=== PATIENT | female | born 1955 | race Caucasian/White ===

== ENCOUNTER 2019-03-30 11:37 | Outpatient (CLI) | payer MEDICARE, OTHER, SELFPAY ==
--- NOTE | 2019-03-30 11:47 | CT_ITS ---
WS: [id number] CT ANGIOGRAPHY ABDOMEN AORTA HISTORY: RENAL ARTERY ANEURYSM TECHNIQUE: CT angiogram is performed during IV injection. Reformation and MIP images reviewed. All CT scans at [facility] use at least one of these dose optimization techniques: automated exp osure control; mA and/or kV adjustment per patient size (includes targeted exams where dose is matche d to clinical indication); or iterative reconstruction. CONTRAST: Omnipaque 350; 95 mL IV. DLP: 491.16 mGycm COMPARISON: 10/26/2017 Chronic emphysematous changes at the lung bases. Heart size is normal. No significant hiatal hernia. Multiple cysts are scattered throughout the liver. The largest is lobulated in the LEFT lobe with a m aximum diameter of 2.2 cm. No solid mass. Benign calcification in the RIGHT lobe of the liver. Gallbl adder is normal. Spleen is normal size. Pancreas and common bile duct are normal. Normal RIGHT adrena l gland. Lobulated LEFT adrenal gland is similar to the prior study from 2018. Hyperplasia versus 1.4 cm adenoma. No free fluid or adenopathy. There are a few scattered diverticula in the visualized LEF T colon. Abdominal aorta: Good contrast opacification of the abdominal aorta. There is no abdominal aortic ane urysm. Celiac axis and SMA are widely patent. Inferior mesenteric artery is patent. LEFT renal artery: Origin of the LEFT renal artery is normal. There is a small amount of calcificatio n in the wall which is not causing an obstruction. Partially calcified 1.2 cm renal artery aneurysm j ust proximal to the LEFT renal pelvis. There is calcification in the wall and partial thrombus. The l umen of the aneurysm is well opacified. No increase in size of the aneurysm since the prior study. LE FT kidney is normally enhancing. RIGHT renal artery: Origin of the RIGHT renal artery is normal. No aneurysm. Normal enhancement of th e kidney. Single renal artery is present. Increase in lumbar lordosis. No osteoblastic or osteolytic bone disease. CT/CT angio abdomen [id number] IMPRESSION: 1. 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 Peripheral calcification a smal l amount of thrombus with partial enhancement of the aneurysm. No increase in s ize. 2. Single bilateral renal arteries with a small amount of calcified plaque pro ximally. 3. Emphysema. 4. Hepatic cysts, stable.
[2019-03-30 12:31] LABS: Blood Urea Nitrogen 10 mg/dL (8-23)
[2019-03-30] MEDS: iohexol 350 mg/mL 100 mL Btl IV (12:41)
== END 2019-03-30 11:38 | disposition home or self-care (01) ==
LOC: RADWPI 11:44
PROVIDERS: Family Provider Nurse Practitioner Family; PCP Nurse Practitioner Family; Visit Provider Internal Medicine Cardiovascular Disease
DX: I72.2 Aneurysm of renal artery (principal); J43.9 Emphysema, unspecified; K76.0 Fatty (change of) liver, not elsewhere classified; K76.89 Other specified diseases of liver
CPT/HCPCS: 74175; 82565; 84520; Q9967

== ENCOUNTER 2020-03-01 12:37 | Outpatient (CLI) | payer MEDICARE, OTHER, SELFPAY ==
--- NOTE | 2020-03-01 13:11 | MM_ITS ---
WS: [id number] DIAGNOSTIC BILATERAL DIGITAL MAMMOGRAM WITH CAD RIGHT breast ultrasound, limited HISTORY: RT BREAST CYSTIC LESION 7-8 O'CLOCK COMPARISON: 11/16/2018 and 10/26/2017 TECHNIQUE: Bilateral craniocaudad, mediolateral oblique, and mediolateral views are submitted. Spot c ompression RIGHT CC and MLO. Computer aided detection utilized. Breast composition: The breasts are heterogeneously dense, which may obscure small masses. Triangular markers are placed near the upper outer quadrant of the RIGHT breast. There is no underlying mass or distortion. No calcifications. LEFT breast is negative. RIGHT breast ultrasound, limited. Ultrasound performed in the area of interest. At 12:00 is a minimally prominent duct and mild soft ti ssue thickening. No suspicious finding. At 8:00 mildly prominent duct with no mass. No cystic or syeda d masses. MM/[place] [id number] IMPRESSION: BI-RADS: 2-Benign FOLLOW UP: 1 Year Follow-up
== END 2020-03-01 12:38 | disposition home or self-care (01) ==
LOC: RADSHAW 12:43
PROVIDERS: PCP Nurse Practitioner Family; Visit Provider Nurse Practitioner Family
DX: N63.14 Unspecified lump in the right breast, lower inner quadrant (principal)
CPT/HCPCS: 76642; 77066

== ENCOUNTER 2020-11-14 08:18 | Outpatient (CLI) | payer MEDICARE, OTHER, SELFPAY ==
--- NOTE | 2020-11-14 08:30 | CT_ITS ---
WS: [id number] LDCT LUNG CANCER SCREENING TECHNIQUE: Noncontrast CT of the chest with coronal and sagittal reformatted images. CLINICAL INFORMATION: R22.2 - Localized swelling, mass and lump, trunk COMPARISON: CT chest September 06, 2020 DLP: 53.79 mGy.cm DIvol: 1.[address] scans at [facility] use at least one of these dose optimization techniques: automat ed exposure control; mA and/or kV adjustment per patient size (includes targeted exams where dose is matched to clinical indication); or iterative reconstruction. FINDINGS: Mild chronic emphysematous changes. No acute pulmonary infiltrates. No focal pneumonia or pleural flu id. A few calcified granulomas. Slight subsegmental atelectasis in the left lower lobe. Fibrosis in t he lung apices. No suspicious pulmonary parenchymal abnormalities. Sclerosis involving the sternum at the manubrial sternal joint with marginal sclerosis and slight ero sive changes. This is similar to the outside CT. Recommend correlation for osteomyelitis. Mild soft t issue thickening. No associated fluid collection or abscess. Mild thoracic kyphosis. A few prominent anterior mediastinal lymph nodes unchanged since the outside CT. Mild aortic calcification coronary c alcification. Adrenal glands are normal. Partially visualized hepatic cysts. CT/CT lung screening [id number] IMPRESSION: LUNG-RADS: 2S-Benign Appearance or Behavior with Significant Findings FOLLOW UP: 12 Month: Continue annual screening with LDCT
--- NOTE | 2020-11-14 11:00 | NM_ITS ---
WS: [id number] NUCLEAR MEDICINE BONE SCAN Radiopharmaceutical: 24.7 Tc-99m MDP mCi IV Injection site: Left antecubital Postinjection imaging delay: 1 hr CLINICAL INFORMATION: R22.2 - Localized swelling, mass and lump, trunk COMPARISON: None. FINDINGS: Bone lesions: Focal intense bony uptake at the sternomanubrial joint corresponding to the periarticul ar sclerotic findings on the concurrent CT. Differential considerations include infectious or inflamm atory arthritis versus osteomyelitis. Recommend correlation with clinical symptoms. No drainable absc ess or fluid collection on the CT. Soft tissue contours: Normal. Kidneys: Normal. Other findings: None. NM/NM bone scan whole body* [id number] IMPRESSION: 1. Focal intense bony uptake at the sternomanubrial joint corresponding to the periarticular sclerotic findings in the concurrent CT. 2. Differential considerations include infectious or inflammatory arthritis wi th reactive bony changes. Changes of osteomyelitis difficult to exclude. Recomm end correlation with infectious symptoms and follow-up to resolution. 3. No drainable abscess or fluid collection on the concurrent CT.
== END 2020-11-14 08:19 | disposition home or self-care (01) ==
LOC: CT 08:22
PROVIDERS: PCP Nurse Practitioner Family; Visit Provider Thoracic Surgery (Cardiothoracic Vascular Surgery)
DX: Z12.2 Encounter for screening for malignant neoplasm of respiratory organs (principal); R22.2 Localized swelling, mass and lump, trunk
CPT/HCPCS: 71271; 78306; A9561

== ENCOUNTER 2022-10-21 10:26 | Outpatient (CLI) | payer MEDICARE, OTHER, SELFPAY ==
--- NOTE | 2022-10-21 11:00 | MM_ITS ---
WS: [id number] VIEWS: MLO and CC views both breasts. 3D digital tomosynthesis is also included in this exam. Comparison made with prior exam of 03/12/2014, 08/21/2015, 08/10/2016, 10/26/2017, 11/16/2018, 03/01/2020,. Findings: There was no sign of mass, architectural distortion or suspicious calcification in either breast. The re are scattered areas of fibroglandular density. Impression: MM/[place] [id number] BI-RADS: 2-Benign finding. FOLLOW-UP: 1 Year Follow-up This mammogram was also analyzed by the Computer Aided Detection System R2 Imag e Form Grader Operator.
== END 2022-10-21 10:27 | disposition home or self-care (01) ==
PROVIDERS: PCP Nurse Practitioner Family; Visit Provider Nurse Practitioner Family
DX: Z12.31 Encounter for screening mammogram for malignant neoplasm of breast (principal)
CPT/HCPCS: 77063; 77067

== ENCOUNTER 2023-09-29 07:48 | Oncology outpatient (recurring) (ONCR) | payer MEDICARE, OTHER, SELFPAY ==
[2023-09-29 09:06] LABS: Basophils % 0.3 %; Eosinophils # 0.2 10^3/uL (0.0-0.8); Eosinophils % 2.4 %; Hematocrit 43.6 % (36-47); Lymphocytes # 3.3 10^3/uL (0.8-4.8); Lymphocytes % 36.9 %; Mean Corpuscular HGB Conc 31.9 g/dL (30-55); Mean Corpuscular Hemoglobin 29.1 pg (27-33); Mean Corpuscular Volume 91.2 fl (85-98); Mean Platelet Volume 11.2 fL (7.4-10.4); Monocytes # 0.6 10^3/uL (0.2-0.9); Monocytes % 6.3 %; Neutrophils # 4.81 10^3/uL (1.8-7.7); Neutrophils % 53.7 %; Nucleated Red Blood Cells % 0 %; Platelet Count 233 10^3/cmm (157-399); Red Blood Count 4.78 10^6/uL (3.85-5.65); Red Cell Distribution Width 14.5 % (12.1-15.1); White Blood Count 8.98 10^3/uL (3.29-11.43)
[2023-09-29 09:17] LABS: Erythrocyte Sedimentation Rate 6 mm/hr (0-15); LAB Peripheral Smear Sent for Review
[2023-09-29 09:30] LABS: Alanine Aminotransferase 25 U/L (0-33); Albumin Level 4.4 g/dL (3.5-5.2); Alkaline Phosphatase 88 U/L (35-105); Anion Gap 13.1 (5-19); Aspartate Amino Transferase 25 U/L (0-32); Blood Urea Nitrogen 11 mg/dL (8-23); Calcium 9.6 mg/dL (8.5-10.5); Carbon Dioxide 28 mmol/L (22-29); Chloride 103 mmol/L (98-107); Creatinine Clr Calc Pharmacy 54.4059; Globulin 3.1 g/dL (1.3-4.6); Glomerular Filtration Rate 99.1 mL/min (90-130); Glucose 96 mg/dL (65-115); Lactate Dehydrogenase 158 U/L (135-214); Osmolality Calculated 289 mOsm/kg (285-295); Potassium 4.1 mmol/L (3.5-5.1); Sodium 140 mmol/L (136-145); Total Bilirubin 0.6 mg/dL (0.15-1.2); Total Protein 7.5 g/dL (6.6-8.7)
[2023-09-29 09:44] LABS: Vitamin B12 1315 pg/mL (232-1245)
== END 2023-10-09 23:55 | disposition home or self-care (01) ==
PROVIDERS: PCP Nurse Practitioner Family; Visit Provider Internal Medicine Medical Oncology
DX: D69.6 Thrombocytopenia, unspecified (principal)
CPT/HCPCS: 36415; 80053; 82607; 83615; 85025; 85651; 86140; 99204

== ENCOUNTER → 2024-04-25 13:52 | Outpatient (BNVA) | payer MEDICARE, OTHER, SELFPAY | PROVIDERS: PCP Nurse Practitioner Family; Visit Provider Internal Medicine | DX: I45.10 Unspecified right bundle-branch block (principal); R07.9 Chest pain, unspecified; I10 Essential (primary) hypertension; Z87.891 Personal history of nicotine dependence | CPT/HCPCS: 93005; 99204 ==

== ENCOUNTER 2024-06-22 07:47 | Outpatient (CLI) | payer MEDICARE, OTHER, SELFPAY ==
--- NOTE | 2024-06-22 | ECG_ITS ---
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 The perfusion scan will be documented separately. DATA: Baseline heart rate was 78 beats per minute. Baseline blood pressure was 183/107 millimeters of mercury. Target heart rate was 150. Maximum heart rate achieved was 101. which was 67% of the predicted target heart rate. Maximum blood pressure was 183/112 millimeters of mercury. The reason for ending the test was completion of the protocol. The patient did not experience any symptoms. ELECTROCARDIOGRAM: BASELINE: Sinus rhythm. Normal axis. Right bundle branch block EXERCISE: After Lexiscan injection, no ST-T changes suggestive of ischemic noted. No arrhythmia noted. CONCLUSION: Please note due to baseline abnormality of the EKG specificity and sensitivity of the EKG portion of LexiScan MIBI stress test will be low 1. EKG not suggestive of ischemia 2. Lexiscan injection unremarkable. 3. Perfusion scan will be documented separately Electronically Signed On 07-11-2024 22:42:30 CDT by ALEXA MCKEON [email or web address]
[2024-06-22 08:09] VITALS: BMI 23.6
--- NOTE | 2024-06-22 08:13 | NMCV_ITS ---
NM lisbeth perf SPECT r/s* [id number] Niyah Kerns Age: 68 Gender: F : 1955 Exam Date: 06/22/2024 08:51 Ordering Phys: Artemio Herrera M.D ([email or web address]) Technologist: CATRACHO Maier Exam Location: [facility] Indications: cp STRESS TEST Please see separate stress test report in [facility] for full findings IMAGE PROTOCOL Rest/Stress 1 Exercise Day Radiopharmaceutical Dose (mCi) Administration Site Administered by Rest: Tc-99m 10.6 IV CATRACHO Maier Sestamibi Stress:Tc-99m 32.9 IV Yanique Anand, CATRACHO Sestamibi Rest: 22-Jun-2024 60 Discovery 630 Stress: 22-Jun-2024 30 Discovery 630 0.4mg Lexiscan. Images obtained in supine and prone position. SPECT RESULTS Technical Quality: Good Raw Data Analysis: Normal Image Corrections: No attenuation or motion correction applied Summed Stress Score: 0 Summed Rest Score: 0 Summed Difference Score: 0 PERFUSION FINDINGS SPECT images demonstrate homogeneous tracer distribution throughout the myocardium. FUNCTIONAL RESULTS (calculated via Gated SPECT) Stress Image LV EF (%): 83 Stress EDV (mL):42 TID: 0.63 Stress ESV (mL):7 FUNCTIONAL FINDINGS: There is normal left ventricular systolic function. IMPRESSIONS Myocardial perfusion imaging is normal. Fernanda Martins MD (Electronically Signed) Final Date: 22 Jun 2024 16:52 S
[2024-06-22] MEDS: regadenoson 0.4 Mg/5 ml Syringe IVP (09:19)
[2024-06-22 09:33] VITALS: BP 168/91; PULSE 88
--- NOTE | 2024-06-22 13:30 | USCV_ITS ---
Niyah Kerns Age: 68 Gender: F : 1955 Exam Date: 06/22/2024 13:16 Ordering Phys: Artemio Herrera M.D ([email or web address]) Technologist: Exam Location: [facility] [place] Indication: Cp, SoB BP: 130 / 70 HR: 83 Rhythm: Sinus Technical Quality: Adequate MEASUREMENTS (Male / Female) Normal Values 2D ECHO LV Diastolic Diameter PLAX 3.9 cm 4.2 - 5.9 / 3.9 - 5.3 cm IVS Diastolic Thickness 1.1 cm 0.6 - 1.0 / 0.6 - 0.9 cm IVS Systolic Thickness 1.6 cm LVPW Diastolic Thickness 1.5 cm 0.6 - 1.0 / 0.6 - 0.9 cm LVPW Systolic Thickness 1.3 cm LVOT Diameter 2.0 cm LV Ejection Fraction 2D Teich 69.1 % LV Ejection Fraction MOD 4C 54.2 % LV Ejection Fraction MOD 2C 71.6 % LV Ejection Fraction 2C AL 72.5 % LA Diameter 2.7 cm RA Systolic Volume 4C AL 17.9 ml RA Systolic Volume 4C MOD 17.1 ml LA Sys Volume AL 31.6 cm cubed LA Sys Volume Index AL 20.4 cm cubed/m squared Aorta at Sinotubular Diameter 2.5 cm IVC Diameter 1.5 cm M-MODE LA Ao Ratio MM 1.5 AV Cusp Separation MM 2.2 cm DOPPLER AV Peak Velocity 152.7 cm/s LVOT Peak Velocity 147.0 cm/s AV Area Cont Eq vti 3.8 cm squared AV Area Cont Eq pk 3.1 cm squared MV Peak Velocity 116.0 cm/s MV Area PHT 4.1 cm squared Mitral E to A Ratio 0.6 TR Peak Velocity 157.0 cm/s TR Peak Gradient 9.9 mmHg TV Peak E Velocity 64.0 cm/s PV Peak Velocity 114.0 cm/s FINDINGS Left Ventricle Left ventricular is normal size. LV systolic function is normal with EF of 65-70%. No regional wall motion abnormalities are seen. Grade 1 diastolic dysfunction. Right Ventricle Normal in size and function Right Atrium Normal in size Left Atrium Normal in size Mitral Valve Structurally normal mitral valve. Mild mitral regurgitation Aortic Valve Structurally normal aortic valve. No significant stenosis or regurgitation. Tricuspid Valve Insufficient TR jet to calculate RVSP. Pulmonic Valve Mild pulmonic regurgitation. Pericardium Normal Aorta Normal in size IVC Appears to be normal CONCLUSIONS LV systolic function is normal with EF of 65-70% Grade 1 diastolic dysfunction Mild mitral regurgitation Mild pulmonic regurgitation Artemio Herrera MD (Electronically Signed) Final Date: 13 July 2024 09:59 S
== END 2024-06-22 07:48 | disposition home or self-care (01) ==
PROVIDERS: PCP Nurse Practitioner Family; Visit Provider Internal Medicine
DX: R07.9 Chest pain, unspecified (principal); R06.02 Shortness of breath; R93.1 Abnormal findings on diagnostic imaging of heart and coronary circulation; I34.0 Nonrheumatic mitral (valve) insufficiency; I37.1 Nonrheumatic pulmonary valve insufficiency
CPT/HCPCS: 36415; 78452; 93017; 93306; 96374; A9500; J2785

== ENCOUNTER → 2024-07-19 12:44 | Outpatient (BNVA) | payer MEDICARE, OTHER, SELFPAY | PROVIDERS: PCP Nurse Practitioner Family; Visit Provider Internal Medicine | DX: I10 Essential (primary) hypertension (principal); Z87.891 Personal history of nicotine dependence | CPT/HCPCS: 99213 ==